=== PATIENT | female | born 1975 | race Caucasian/White ===

== ENCOUNTER 2017-08-07 19:29 | Emergency (ER) | payer MEDICARE, MEDICAID ==
[~2017-08-07] VITALS: Ht 165.1 cm; Wt 68.0 kg
[2017-08-07 19:35] VITALS: BP 119/88
[2017-08-07] MEDS ORDERED: ACETAMINOPHEN 500 MG TABLET PO ONE (20:00)
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
== END 2017-08-07 20:32 | disposition home or self-care (01) ==
LOC: ER 19:29
DX: S63.91XA Sprain of unspecified part of right wrist and hand, initial encounter (principal); E78.00 Pure hypercholesterolemia, unspecified; M06.9 Rheumatoid arthritis, unspecified; Z88.5 Allergy status to narcotic agent; X58.XXXA Exposure to other specified factors, initial encounter; Y93.89 Activity, other specified; Y92.89 Other specified places as the place of occurrence of the external cause; Y99.8 Other external cause status
CPT/HCPCS: 73130; 99284